=== PATIENT | female | born 1970 | race Asian ===

== ENCOUNTER 2023-07-19 11:00 | Emergency (ER) | payer OTHER, SELFPAY ==
[2023-07-19 11:07] VITALS: BP 148/90; PULSE 92; RESP 16; TEMP 37; O2SAT 98; BMI 19.8
--- NOTE | 2023-07-19 11:23 | CT_ITS ---
Patient: [facility] Facility:?[facility] Patient ID:?[id number] Site Patient ID:?[id number]. Site :?[id number] Study:?CT-Head W/O-07/19/2023 11:52:13 AM Ordering Physician:MISSAEL Final Report: INDICATION: Headache. TECHNIQUE: Noncontrast CT images of the brain. COMPARISON: None. FINDINGS: The ventricles and sulci are within normal limits for patient age. No mass effect or midline shift. The noble-white differentiation is maintained. No acute intracranial hemorrhage or pathologic extra-axial fluid collection. Trace atherosclerotic calcifications in the carotid siphons. The globes are symmetric. The calvarium is intact. Mild right maxillary sinus mucosal thickening. The mastoid air cells are clear. IMPRESSION: No acute intracranial hemorrhage or mass effect. Please note that all CT scans at this facility use dose modulation, iterative reconstruction, and/or weight-based dosing when appropriate to reduce radiation dose to as low as reasonably achievable. Dictated by Lewis Montalvo MD @ 07/19/2023 12:10:36 PM Signed by:?Lewis Montalvo MD @07/19/2023 12:10:36 PM (Electronic Signature)
--- NOTE | 2023-07-19 11:38 | ED.GENADULT ---
HPI - General Adult General Date Seen: 07/19/23 Chief complaint: Dizziness/Vertigo Stated complaint: headache Time Seen by Provider: 07/19/23 11:23 Source: patient Mode of arrival: ambulatory Limitations: no limitations History of Present Illness HPI narrative: Patient is a 52-year-old female presenting to the emergency department for a headache for last couple weeks. States over the past 2 week she has been noticing a right-sided stabbing headache in her right buddhism region. Has gotten worse over the past week. Symptoms are on and off. She also have intermittent dizziness and lightheadedness. States the headache seems to be gradually getting worse. Denies any history of brain aneurysm that she is aware of. Does states she had a sister with similar symptoms but they quickly resolved on their own. Has been using [id number] motion sickness and migraine pills. Initially was having headache today when she called nursing staff and was recommended to come to the emergency department. By the time she arrives symptoms have resolved but while stockings were she is starting to get the headache again. Denies fevers, chills, chest pain, shortness of breath, abdominal pain, diarrhea, constipation, nausea/vomiting, weakness, numbness. Related Data Previous Rx's Medication Instructions Recorded meclizine 25 mg tablet 25 mg PO QID #20 tabs 07/19/23 Allergies Allergy/AdvReac Type Severity Reaction Status Date / Time No Known Drug Allergies Allergy Verified 07/19/23 11:06 Review of Systems Status of ROS: Reports: 10 or more systems reviewed and unremarkable except as noted in History and below PFSH PFS Social History Smoking Status: Never smoker How often do you have a drink containing alcohol: never AUDIT-C Alcohol total score: 0 Non-prescribed substance use: denies use Exam Narrative: Exam Narrative: Const: Well-nourished, Well-developed, in no distress Eyes: PERRL, no conjunctival injection, and symmetrical lids HENT: Atraumatic external nose and ears. Moist mucous membranes. Neck: Symmetric, trachea midline, No thyromegaly. CVS: RRR, No murmurs or gallops. Peripheral pulses 2+ and equal in all extremities RESP: Unlabored respiratory effort. Clear to auscultation bilaterally. GI: Nontender/Nondistended, No rebound or guarding. MSK:Extremities w/o deformity, Normal Active ROM Skin: Warm, Dry. No rashes or lesions. Neuro: Normal Muscle tone, No focal neurological deficits. Psych: Awake, Alert, & Oriented x3. Appropriate mood and affect. Const: Vital Signs, click to edit/add: Vital Signs - 24 hr 07/19/23 11:07 Temperature 98.6 F Pulse Rate [Pulse Oximeter] 92 Respiratory Rate 16 Blood Pressure [Ri ght Upper Arm] 148/90 H Pulse Oximetry 98 Oxygen Delivery Me thod Room Air Course Vital Signs Vital signs: Initial Vital Signs Temperature 98.6 F 07/19/23 11:07 Temperature Source Temporal Artery Scan 07/19/23 11:07 Pulse Rate 92 07/19/23 11:07 Respiratory Rate 16 07/19/23 11:07 Blood Pressure 148/90 H 07/19/23 11:07 Blood Pressure Mean 109 H 07/19/23 11:07 Blood Pressure Position High-Fowlers 07/19/23 11:07 Pulse Oximetry 98 07/19/23 11:07 Oxygen Delivery Method Room Air 07/19/23 11:07 Vital Signs Temperature 98.6 F 07/19/23 11:07 Pulse Rate 92 07/19/23 11:07 Respiratory Rate 16 07/19/23 11:07 Blood Pressure 148/90 H 07/19/23 11:07 Pulse Oximetry 98 07/19/23 11:07 Oxygen Delivery Method Room Air 07/19/23 11:07 Temperature 98.6 F 07/19/23 11:07 Pulse Rate 92 07/19/23 11:07 Respiratory Rate 16 07/19/23 11:07 Blood Pressure 148/90 H 07/19/23 11:07 Pulse Oximetry 98 07/19/23 11:07 Oxygen Delivery Method Room Air 07/19/23 11:07 Medications Administered Medications: Discontinued Medications Generic Name Dose Route Start Last Admin Trade Name Freq PRN Reason Stop Dose Admin Diphenhydramine HCl 25 mg 07/19/23 12:13 07/19/23 12:30 Diphenhydramine 50 Mg/Ml Inj IVP 07/19/23 12:14 25 mg ONCE ONE Administration Lactated Ringer's 1,000 mls @ 1,000 mls/hr 07/19/23 12:13 07/19/23 13:32 Lactated Ringers 1000 Ml IV 07/19/23 13:12 Infused .Q1H ONE Infusion Meclizine HCl 25 mg 07/19/23 13:28 07/19/23 13:40 Meclizine Hcl 25 Mg Tablet PO 07/19/23 13:29 25 mg ONCE ONE Administration Metoclopramide HCl 10 mg 07/19/23 12:13 07/19/23 12:30 Metoclopramide Hcl 5 Mg/Ml Inj IVP 07/19/23 12:14 10 mg ONCE ONE Administration Medical Decision Making MDM Narrative Medical decision making narrative: Patient is a 52-year-old female presenting to emergency department for headache, lightheadedness, dizziness. The symptoms are all intermittent and she states have been gradually getting worse. She describes the headache as a stabbing sensation in the right temporal region. States this headache seemed to be rather sudden onset of but was not severe initially. While I am considering a subarachnoid hemorrhage order CT scan the head this seems unlikely considering the length of the symptoms and intermittent nature. Also the headaches typically would have maximal pain within a few minutes while hers took over week to get to its worst. Were also ordered EKG and troponin since she is having episodes of lightheadedness and dizziness. Also ordered CBC and CMP. CT scan head showed no concerning findings. Lab work shows no concerning findings. She is feeling better after the migraine cocktail that was given. Also gave her a dose of meclizine to help with her small amount of dizziness. The dizziness did start again while she was here and did not worsen with head movement. It was relatively mild dizziness she states. Again, considering this is going on for several weeks and is intermittent in nature both the dizziness and the headache I do not think this is a subarachnoid hemorrhage so I am comfortable not doing a lumbar puncture at this time. She is otherwise doing well and what do not know exactly was causing his symptoms at informed to follow-up with primary care provider for possible follow-up with Neurology. I will prescribe her meclizine in the meantime. She is agreeable to this plan. Lab Data Labs: Lab Results 07/19/23 07/19/23 Range/Units 11:35 11:35 WBC 5.03 (4.50-11.00) K/uL RBC 4.30 (4.00-5.20) m/uL Hgb 12.9 (12.0-16.0) gm/dL Hct 39.0 (33.0-51.0) % MCV 91 (80-100) fL MCH 30 (26-34) pg MCHC 33 (32-36) gm/dL RDW Coeff of Malinda 11.8 (11.5-15.5) % Plt Count 284 (140-440) K/uL Neut % (Auto) 64.6 (42.0-72.0) % Lymph % (Auto) 27.8 (20-44) % [place] % (Auto) 6.4 (0.0-11.0) % Eos % (Auto) 0.6 (0.0-7.0) % Baso % (Auto) 0.4 (0.0-3.0) % Neut # (Auto) 3.25 (1.7-7.0) K/uL Lymph # (Auto) 1.40 (0.90-2.90) K/uL [place] # (Auto) 0.30 (0.00-0.90) K/UL Eos # (Auto) 0.03 (0.00-0.50) K/uL Baso # (Auto) 0.02 (0.00-0.30) K/uL Abs Immat Gran (auto) 0.01 (0.00-0.30) K/uL Imm/Tot Granulo (auto) 0.2 % Sodium 137 (135-149) mmol/L Potassium 4.0 (3.6-5.1) mmol/L Chloride 103 (96-114) mmol/L Carbon Dioxide 27 (20-32) mmol/L Anion Gap 7 (7-15) mEq/L BUN 21 (7-30) mg/dL Creatinine 0.5 (0.5-1.5) mg/dL Estimated Creat Clear 101.79 Estimated GFR 113 ml/min Glucose 92 (60-115) mg/dL Calcium 9.6 (8.4-10.6) mg/dL Total Bilirubin 0.4 (0.1-1.5) mg/dL AST 31 (12-35) U/L ALT 25 (4-35) U/L Alkaline Phosphatase 84 (40-150) U/L Troponin I < 0.01 L Cancelled (0.01-0.04) ng/mL Total Protein 8.5 H (6.0-8.3) g/dL Albumin 4.8 (3.3-5.0) g/dL Imaging Data CT scan - head: Attestation: I have reviewed the pertinent imaging results. Radiologist's impression: No acute intracranial hemorrhage or mass effect. Please note that all CT scans at this facility use dose modulation, iterative reconstruction, and/or weight-based dosing when appropriate to reduce radiation dose to as low as reasonably achievable. Dictated by Lewis Montalvo MD @ 07/19/2023 12:10:36 PM ECG Data Attestation: I personally reviewed and interpreted this ECG as follows: Prior ECG tracings: not available for review Interpretation: Normal sinus rhythm with a rate of 76 beats per minute, normal intervals, normal axis, no ST or T-wave abnormalities Discharge Plan Discharge Clinical Impression: Headache Qualifiers: Headache type: unspecified Headache chronicity pattern: episodic headache Intractability: not intractable Qualified Code(s): R51.9 - Headache, unspecified Patient Disposition: Home, Self-Care Condition: Improved Instructions: Acute Headache (DC) Additional Instructions: Take the meclizine 4 times a day for the next 5 days. Do not take any other of sickness medicines as these were intact with them. Take Tylenol ibuprofen as needed for her headache. Follow-up with her primary care provider about possible referral for Neurology. Return to emergency department for new or worsening symptoms Prescriptions: New meclizine 25 mg tablet 25 mg PO QID Qty: 20 0RF Follow Up/Referrals: Provider,Not a Local [Primary Care Provider] - Stand Alone Forms: [employer] Info Instructions
[2023-07-19 12:01] LABS: Basophils Absolute Auto 0.02 K/uL (0.00-0.30); Basophils Percent Auto 0.4 % (0.0-3.0); Eosinophils Absolute Auto 0.03 K/uL (0.00-0.50); Eosinophils Percent Auto 0.6 % (0.0-7.0); Hemoglobin* 12.9 gm/dL (12.0-16.0); Immature Granulocytes Abs Auto 0.01 K/uL (0.00-0.30); Immature Granulocytes Pct Auto 0.2 %; Lymphocytes Percent Auto 27.8 % (20-44); Mean Corpuscular HGB Conc 33 gm/dL (32-36); Mean Corpuscular Hemoglobin 30 pg (26-34); Mean Corpuscular Volume 91 fL (80-100); Monocytes Percent Auto 6.4 % (0.0-11.0); Neutrophils Absolute Auto 3.25 K/uL (1.7-7.0); Neutrophils Percent Auto 64.6 % (42.0-72.0); Platelet Count* 284 K/uL (140-440); RDW Coefficient of Variation % 11.8 % (11.5-15.5); White Blood Count* 5.03 K/uL (4.50-11.00)
[2023-07-19 12:02] LABS: Albumin* 4.8 g/dL (3.3-5.0); Chloride* 103 mmol/L (96-114); Slide Review Reflex No
[2023-07-19 12:03] LABS: Sodium* 137 mmol/L (135-149)
[2023-07-19 12:05] LABS: Anion Gap 7 mEq/L (7-15); Aspartate Amino Transferase* 31 U/L (12-35); Bilirubin Total* 0.4 mg/dL (0.1-1.5); Carbon Dioxide* 27 mmol/L (20-32); Creatinine* 0.5 mg/dL (0.5-1.5); Est. Creatinine Clearance* 101.79; Estimated Glomerular Filt Rate 113 ml/min; Total Protein* 8.5 g/dL (6.0-8.3)
[2023-07-19 12:06] LABS: Alanine Aminotransferase* 25 U/L (4-35); Alkaline Phosphatase* 84 U/L (40-150); Blood Urea Nitrogen* 21 mg/dL (7-30); Calcium* 9.6 mg/dL (8.4-10.6); Glucose* 92 mg/dL (60-115)
[2023-07-19 12:19] LABS: Troponin I* < 0.01 ng/mL (0.01-0.04)
[2023-07-19] MEDS: LACTATED RINGERS 1000 ML 1,000 ML IV (12:30)
[2023-07-19] MEDS: diphenhydrAMINE 50 MG/ML inj 25 MG IVP (12:30)
[2023-07-19] MEDS: METOCLOPRAMIDE HCL 5 MG/ML INJ 10 MG IVP (12:30)
[2023-07-19] MEDS: MECLIZINE HCL 25 MG TABLET PO (13:40)
== END 2023-07-19 14:47 | disposition home or self-care (01) ==
PROVIDERS: Emergency Provider Student in an Organized Health Care Education/Training Program
DX: R51.9 Headache, unspecified (principal)
CPT/HCPCS: 36415; 70450; 80053; 84484; 85025; 93005; 96361; 96374; 96375; 99283; 99284; 99285; A9270; J1200; J2765; J7120